=== PATIENT | female | born 1980 | race Caucasian/White ===

== ENCOUNTER 2022-09-12 09:36 | Outpatient (CLI) | payer OTHER, SELFPAY ==
--- NOTE | ~2022-09-12 | MM_ITS ---
EXAMINATION: MM screening jace BI w lucinda HISTORY: Screening mammogram TECHNIQUE: Craniocaudal and mediolateral oblique 3-D tomosynthesis images were obtained and synthetic 2-D images were generated. CAD analysis was submitted and interpreted. COMPARISON: No prior mammogram is available for comparison at this institution. BREAST PARENCHYMAL COMPOSITION: The breasts are heterogeneously dense, which may obscure small masses . FINDINGS: There is no evidence of suspicious mass, calcification, or architectural distortion to sugg est malignancy in either breast. There has been no suspicious interval change. IMPRESSION: 1. No mammographic evidence of malignancy. 2. Recommend routine screening mammography in one year. BI-RADS Category 1: Negative Reviewed, dictated and finalized at location A. RIOR COURT CLERK
== END 2022-09-12 09:37 | disposition home or self-care (01) ==
PROVIDERS: Visit Provider Internal Medicine
DX: Z12.31 Encounter for screening mammogram for malignant neoplasm of breast (principal)
CPT/HCPCS: 77063; 77067

== ENCOUNTER 2022-10-02 12:06 | Emergency (ER) | payer OTHER, SELFPAY ==
[2022-10-02] VITALS (32 sets, daily range): BP systolic 99–121; BP diastolic 41–75; PULSE 57–76; RESP 10–24; TEMP 36.6; O2SAT 98–100
--- NOTE | 2022-10-02 12:38 | ECG_ITS ---
Measurements Intervals [place] Rate: 64 P: 67 [place]: 143 QRS: 64 QRSD: 71 T: 71 QT: 400 QTc: 414 Interpretive Statements SINUS RHYTHM BASELINE ARTIFACT- I, III, AVR, AVL, AVF, V1 NORMAL ECG NO PREVIOUS ECG AVAILABLE FOR COMPARISON Electronically Signed On 10-02-2022 14:33:39 CDT by Manjeet Bustamante D.O.
[2022-10-02 13:09] LABS: Basophils Percent Auto 0.4 % (0.2-1.2); Eosinophils Absolute Auto 0.2 K/mm3 (0-0.3); Eosinophils Percent Auto 2.8 % (0-4.4); Hematocrit 39.6 % (37.0-47.0); Hemoglobin 13.5 g/dL (12.0-15.0); Immature Granulocyte Absolute 0.03 K/mm3 (0.00-0.031); Immature Granulocyte Percent A 0.5 % (0-0.5); Lymphocytes Absolute Auto 1.15 K/mm3 (0.9-3.2); Lymphocytes Percent Auto 20.4 % (18.3-44.2); Mean Corpuscular HGB Conc 34.1 g/dl (32-36); Mean Corpuscular Hemoglobin 33.8 pg (26-34); Mean Corpuscular Volume 99.2 fl (80-100); Mean Platelet Volume 9.6 fl (7.4-10.4); Monocytes Absolute Auto 0.3 K/mm3 (0.1-0.6); Monocytes Percent Auto 5.9 % (2.6-8.5); Platelet Count Result 301 k/mm3 (150-375); Red Blood Count 3.99 M/mm3 (4.2-5.4); Red Cell Distribution Width 12.4 % (11.5-14.5); White Blood Count 5.6 K/mm3 (4.5-10.0)
[2022-10-02] MEDS: ONDANSETRON INJ 4 MG/2 ML VIAL IV PUSH (13:15)
[2022-10-02] MEDS: MECLIZINE HCL 25 MG TABLET PO (13:15)
[2022-10-02] MEDS: SODIUM CHLORIDE 0.9% IV 1,000 ML 999 ML IV CONT (13:15)
[2022-10-02 13:19] LABS: Alanine Aminotransferase 16 U/L (6-35); Albumin Level 4.6 g/dL (3.5-5.1); Alkaline Phosphatase 130 U/L (38-126); Anion Gap 7 mmol/L (8-16); Aspartate Amino Transferase 25 U/L (14-36); Bilirubin,Total 0.9 mg/dL (0.2-1.3); Blood Urea Nitrogen 9 mg/dL (7-17); Calcium 9.4 mg/dL (8.4-10.2); Carbon Dioxide 27 mmol/L (22-30); Chloride 108 mmol/L (98-107); Estimated CRCL calculation 77 ml/min; Estimated Glomerular Filt Rate > 60; Glucose 95 mg/dL (65-110); Potassium 3.7 mmol/L (3.4-5.0); Sodium 142 mmol/L (137-145)
--- NOTE | 2022-10-02 16:17 | ED.GENADULT ---
HPI - General Adult General Chief complaint: Dizziness Stated complaint: covid with SOB and dizziness Time Seen by Provider: 10/02/22 12:26 History of Present Illness HPI narrative: Patient is a 42-year-old female who presents ER with dizziness. Began this morning. Extreme dizziness with nausea and anxiousness that occurs with movements. Better when sitting still. Patient diagnosed with COVID 2 weeks ago. She was also diagnosed with a sinus infection just couple days ago. She quit taking antibiotics due to side effect. Has throbbing frontal forehead. No ringing in the ears. No numbness or weakness in arm or legs. Related Data Allergies Allergy/AdvReac Type Severity Reaction Status Date / Time Sulfa (Sulfonamide Allergy Severe Sweating Verified 10/02/22 12:06 Antibiotics) Review of Systems Review of Systems: All systems reviewed & are unremarkable except as noted in HPI and below Constitutional: Constitutional: Denies chills, Reports fatigue and Denies fever(s) Eyes: Eyes: Denies change in vision ENT: Reports dizziness, Reports nasal congestion and Denies sore throat Cardiovascular: Cardiovascular: Denies chest pain, Denies rapid heart rate and Denies radiating jaw, neck or arm pain Respiratory: Respiratory: Denies cough and Denies dyspnea Gastrointestinal: Gastrointestinal: Denies abdominal pain, Reports nausea and Denies vomiting PMFSH Past Medical History Medical History (Updated 10/02/22 @ 21:51 by Bruno Nettles MD) cardiomyopathy Reports current ejection fraction is 50% (10/02/22) Surgical History Surgical History (Updated 10/02/22 @ 21:49 by Bruno Nettles MD) No pertinent past surgical history Exam Narrative: GENERAL: Well-appearing, well-nourished, and in no acute distress. HEAD: Normocephalic, atraumatic. EYES: PERRLA and EOMI. ENT: Mucous membranes moist. Tympanic membranes dull and opaque. With ear manipulation there is a loud pop on each side which caused increased dizziness. NECK: Supple. CHEST: Clear to auscultation. No respiratory distress. HEART: Regular rate and rhythm. Normal peripheral pulses. ABDOMEN: Soft, nontender, nondistended. EXTREMITIES: Normal range of motion. No edema. SKIN: Warm, dry, no rash. NEURO: Alert and oriented x3. PSYCH: Normal mood and affect. Course Course Emergency Course: Mild improvement in dizziness. Patient had some headache and was given Tylenol. Up and ambulatory with a steady gait and can turn without having profound dizziness. Recommend continued use of meclizine. Follow-up with PCP. Symptoms felt to be related to her URI and sinus issues. Vital Signs Vital signs: Vital Signs Temperature 97.9 F 10/02/22 12:14 Pulse Rate 76 10/02/22 12:14 Respiratory Rate 20 10/02/22 12:14 Blood Pressure 113/75 10/02/22 12:14 Pulse Oximetry 100 10/02/22 12:14 Oxygen Delivery Room Air 10/02/22 12:14 Temperature 97.9 F 10/02/22 12:14 Pulse Rate 66 10/02/22 17:17 Respiratory Rate 19 10/02/22 17:17 Blood Pressure 104/67 10/02/22 17:17 Pulse Oximetry 99 10/02/22 17:17 Oxygen Delivery Room Air 10/02/22 12:14 Medical Decision Making Vital Signs Vital Signs: Vital Signs Temperature 97.9 F 10/02/22 12:14 Pulse Rate 76 10/02/22 12:14 Respiratory Rate 20 10/02/22 12:14 Blood Pressure 113/75 10/02/22 12:14 Pulse Oximetry 100 10/02/22 12:14 Oxygen Delivery Room Air 10/02/22 12:14 Temperature 97.9 F 10/02/22 12:14 Pulse Rate 66 10/02/22 17:17 Respiratory Rate 19 10/02/22 17:17 Blood Pressure 104/67 10/02/22 17:17 Pulse Oximetry 99 10/02/22 17:17 Oxygen Delivery Room Air 10/02/22 12:14 Lab Data 10/02/22 12:58 10/02/22 12:58 Labs: Lab Results 10/02/22 10/02/22 10/02/22 Range/Units 12:58 12:58 16:37 WBC 5.6 (4.5-10.0) K/mm3 RBC 3.99 L (4.2-5.4) M/mm3 Hgb 13.5 (12.0-15.0) g/dL Hct 39.6
[2022-10-02] MEDS: KETOROLAC 30 MG/ML VIAL (*BKC) IV PUSH (16:41)
[2022-10-02 16:51] LABS: Appearance Urine Clear (Clear); Bilirubin Urine Negative (Negative); Blood Urine Negative (Negative); Color Urine Yellow (Yellow); Glucose Urine UA Negative (Negative); Ketones Urine Trace mg/dL (Negative); Leukocyte Esterase Ur Negative LEU/UL (Negative); Nitrate Urine Negative (Negative); Protein Urine Negative (Negative); Specific Grav Ur 1.012 (1.001-1.035); Urobilinogen Urine 0.2 mg/dL (<2.0); pH Urine 6.5 (5.0-9.0)
[2022-10-02 16:54] LABS: Add Urine Microscopic? NO
== END 2022-10-02 18:00 | disposition home or self-care (01) ==
PROVIDERS: Emergency Provider Emergency Medicine
DX: R42 Dizziness and giddiness (principal)
CPT/HCPCS: 36415; 80053; 81003; 81025; 85025; 93005; 96361; 96374; 96375; 99284; A9270; J1885; J2405; J7030

== ENCOUNTER 2023-10-24 11:37 | Emergency (ER) | payer OTHER, SELFPAY ==
--- NOTE | ~2023-10-24 | CT_ITS ---
EXAMINATION: CT cervical spine wo con DATE: 10/24/2023 13:10 INDICATION: Paresthesias. TECHNIQUE: Computed tomography (CT) of the cervical spine was performed without intravenous contrast. Automated exposure control and iterative reconstruction technique were employed. The dose-length pro duct was 104.93 mGy-cm. COMPARISON: None FINDINGS: There is mild scarring at the lung apices. There is 3 degrees levocurvature of cervical spi ne. There is mild kyphosis of cervical spine. There is moderately decreased disc height at C5-C6. The following disc levels are specifically discussed: C2-C3: There is mild bilateral uncovertebral joint osteoarthritis. There is moderate right and mild l eft facet joint osteoarthritis. There is no neural foraminal stenosis. There is no central canal sten osis. C3-C4: There is mild left uncovertebral joint osteoarthritis. There is mild bilateral facet joint ost eoarthritis. There is mild left neural foraminal stenosis. There is mild central canal stenosis. C4-C5: There is no uncovertebral joint osteoarthritis. There is mild right and moderate left facet harpreet int osteoarthritis. There is no neural foraminal stenosis. There is no central canal stenosis. C5-C6: There is mild bilateral uncovertebral joint osteoarthritis. There is no facet joint osteoarthr itis. There is mild left neural foraminal stenosis. There is mild central canal stenosis. C6-C7: There is no uncovertebral joint osteoarthritis. There is no facet joint osteoarthritis. There is no neural foraminal stenosis. There is no central canal stenosis. C7-T1: There is no uncovertebral joint osteoarthritis. There is mild bilateral facet joint osteoarthr itis. There is no neural foraminal stenosis. There is no central canal stenosis. IMPRESSION: 1. Moderate spondylosis at C5-C6 and mild spondylosis at other levels. Reviewed, dictated and finalized at location A.
--- NOTE | ~2023-10-24 | CT_ITS ---
EXAMINATION: CT brain wo con DATE: 10/24/2023 13:10 INDICATION: Bilateral hand numbness, visual defects and right ear tingling TECHNIQUE: Computed tomography (CT) of the head was performed without intravenous contrast. Sagittal and coronal reconstructions were performed. The mA was adjusted according to patient size. Iterative reconstruction technique was employed. The dose-length product was 605.33 mGy-cm. COMPARISON: None FINDINGS: No acute intracranial hemorrhage, acute infarction or abnormal extra axial fluid collection. Ventricl es are normal and symmetric. No mass/mass effect. Scattered mild mucosal thickening the paranasal sin uses with dependent bubbly mucus in the right sphenoid sinus. The orbits and mastoid air cells are no rmal. IMPRESSION: 1. Normal brain. No acute intracranial process. 2. Bubbly mucus in the right sphenoid sinus which can be seen with acute sinusitis. Reviewed, dictated and finalized at location B. IMPRESSION: 1. Normal brain. No acute intracranial process. 2. Bubbly mucus in the right sphenoid sinus which can be seen with acute sinusi tis.
[2023-10-24 11:40] VITALS: BP 132/70; PULSE 74; RESP 18; TEMP 36.4; O2SAT 100
--- NOTE | 2023-10-24 12:49 | ED.GENADULT ---
HPI - General Adult General Chief complaint: Unspecified Stated complaint: hands tingling and right ear pain Time Seen by Provider: 10/24/23 12:27 History of Present Illness HPI narrative: 43-year-old female with past medical history of cardiomyopathy presents for multiple symptoms. Patient states that she has felt tingling in bilateral upper extremities, general malaise, occasional headaches, pain behind her right ear. Of the symptoms been present for at least 1-2 weeks. There are no acute changes in the way she feels daily. Related Data Allergies Allergy/AdvReac Type Severity Reaction Status Date / Time Sulfa (Sulfonamide Allergy Severe Sweating Verified 10/02/22 12:06 Antibiotics) Review of Systems Review of Systems: CONSTITUTIONAL: Denies fever, chills, or sweats. EYES: Denies visual changes, redness, or discharge. ENT: Denies rhinorrhea, congestion, sore throat, or otalgia. CARDIOVASCULAR: Denies chest pain, palpitations, or edema. RESPIRATORY: Denies cough or dyspnea. GASTROINTESTINAL: Denies abdominal pain, nausea, vomiting, or diarrhea. GENITOURINARY: Denies dysuria or hematuria. SKIN: Denies rash or itching. MUSCULOSKELETAL: Denies back pain, joint pain, or myalgia. NEUROLOGIC: Denies headache, numbness, or weakness. PSYCHIATRIC: Denies anxiety or depression. PMFSH Past Medical History Medical History cardiomyopathy Reports current ejection fraction is 50% (10/02/22) Surgical History Surgical History No pertinent past surgical history Exam Narrative: GENERAL: Well-appearing, well-nourished, and in no acute distress. HEAD: Normocephalic, atraumatic. EYES: PERRLA and EOMI. ENT: Nares clear, no rhinorrhea or epistaxis. Mucous membranes moist. NECK: Supple. CHEST: Clear to auscultation. No respiratory distress. HEART: Regular rate and rhythm. No murmur heard. Normal peripheral pulses. ABDOMEN: Soft, nontender, nondistended, normal active bowel sounds. EXTREMITIES: Normal range of motion. No edema. SKIN: Warm, dry, no rash. NEURO: No focal deficits. Alert and oriented x3. visual acuity grossly normal PSYCH: Normal mood and affect. Course Vital Signs Vital signs: Vital Signs Temperature 97.6 F 10/24/23 11:40 Pulse Rate 74 10/24/23 11:40 Respiratory Rate 18 10/24/23 11:40 Blood Pressure 132/70 10/24/23 11:40 Pulse Oximetry 100 10/24/23 11:40 Oxygen Delivery Room Air 10/24/23 11:40 Temperature 97.6 F 10/24/23 11:40 Pulse Rate 74 10/24/23 11:40 Respiratory Rate 18 10/24/23 11:40 Blood Pressure 132/70 10/24/23 11:40 Pulse Oximetry 100 10/24/23 11:40 Oxygen Delivery Room Air 10/24/23 11:40 Medical Decision Making MDM Narrative Medical decision making narrative: There are no focal deficits on exam. Subarachnoid hemorrhage is felt to be unlikely at this time. There is no history of fever and neck is supple to evaluation without meningismus. Meningitis is felt to be unlikely. No traumatic history or signs of trauma on evaluation. Risk factors for cerebral venous thrombosis reviewed, no visual acuity change benign funduscopy. Cerebral venous thrombosis is felt unlikely at this time. No ocular signs of acute glaucoma today. Patient's headache is felt to be benign cephalgia and reasonable for outpatient management IMPRESSION: 1. Moderate spondylosis at C5-C6 and mild spondylosis at other levels. IMPRESSION: 1. Normal brain. No acute intracranial process. 2. Bubbly mucus in the right sphenoid sinus which can be seen with acute sinusitis. EKG with sinus bradycardia 58 ppm, IL interval 142, QRS duration of 68, QTC 395, normal axis and no ischemia Workup is essentially unremarkable. I have not identified an etiology for patient's chronic symptoms. I do not suspect acute life threat. Patient has an established
--- NOTE | 2023-10-24 12:53 | ECG_ITS ---
SEE SCANNED COPY FOR CONFIRMED REPORT MTDD
--- NOTE | 2023-10-24 13:05 | PC.NURSE ---
unable to obtain EKG patient in CT
[2023-10-24] MEDS: LACTATED RINGERS 1,000 ML 500 ML IV CONT (13:26)
[2023-10-24 13:36] LABS: Basophils Absolute Auto 0.1 K/mm3 (0.0-0.1); Basophils Percent Auto 1.2 % (0.2-1.2); Eosinophils Absolute Auto 0.1 K/mm3 (0-0.3); Hematocrit 41.5 % (37.0-47.0); Hemoglobin 13.7 g/dL (12.0-15.0); Immature Granulocyte Absolute 0.01 K/mm3 (0.00-0.031); Immature Granulocyte Percent A 0.2 % (0-0.5); Lymphocytes Absolute Auto 1.31 K/mm3 (0.9-3.2); Lymphocytes Percent Auto 22.3 % (18.3-44.2); Mean Corpuscular Hemoglobin 33.1 pg (26-34); Mean Corpuscular Volume 100.2 fl (80-100); Mean Platelet Volume 9.6 fl (7.4-10.4); Monocytes Absolute Auto 0.3 K/mm3 (0.1-0.6); Monocytes Percent Auto 5.5 % (2.6-8.5); Neutrophils Absolute Auto 4.1 K/mm3 (1.3-6.7); Neutrophils Percent Auto 69.8 % (45.5-73.1); Platelet Count Result 204 k/mm3 (150-375); Red Blood Count 4.14 M/mm3 (4.2-5.4); Red Cell Distribution Width 12.5 % (11.5-14.5); White Blood Count 5.9 K/mm3 (4.5-10.0)
[2023-10-24 13:58] LABS: Alanine Aminotransferase 10 U/L (6-35); Albumin Level 4.9 g/dL (3.5-5.1); Alkaline Phosphatase 42 U/L (38-126); Anion Gap 8 mmol/L (4-12); Aspartate Amino Transferase 28 U/L (14-36); Bilirubin,Total 0.9 mg/dL (0.2-1.3); Blood Urea Nitrogen 10 mg/dL (7-17); Calcium 9.6 mg/dL (8.4-10.2); Carbon Dioxide 27 mmol/L (22-30); Chloride 105 mmol/L (98-107); Estimated CRCL calculation 77 ml/min; Estimated Glomerular Filt Rate > 60; Glucose 102 mg/dL (65-110); Potassium 4.2 mmol/L (3.4-5.0); Sodium 140 mmol/L (137-145)
[2023-10-24 14:01] LABS: Erythrocyte Sedimentation Rate 17 mm/hr (0-20)
[2023-10-24 14:52] LABS: Free T4 Free Thyroxine 1.28 ng/mL (0.78-2.19)
== END 2023-10-24 15:09 | disposition home or self-care (01) ==
PROVIDERS: Emergency Provider Emergency Medicine; PCP Internal Medicine
DX: R53.82 Chronic fatigue, unspecified (principal)
CPT/HCPCS: 36415; 70450; 72125; 80053; 83735; 84439; 85025; 85652; 93005; 96360; 96361; 99284; J7120

== ENCOUNTER 2024-02-13 20:25 | Emergency (ER) | payer OTHER, SELFPAY ==
--- NOTE | ~2024-02-13 | XR_ITS ---
EXAMINATION: XR chest 2V DATE: 02/13/2024 21:13 INDICATION: Syncopal episode TECHNIQUE: frontal and lateral views of the chest were obtained. COMPARISON: Chest radiograph dated 07/04/2016 FINDINGS: Mild biapical pleural-parenchymal scarring. No other airspace opacities, pulmonary edema, pleural eff usion or pneumothorax. The cardiomediastinal silhouette is normal. Visualized bones and soft tissues are unremarkable. IMPRESSION: 1. No acute cardiopulmonary disease. Reviewed, dictated and finalized at location A.
[2024-02-13 20:29] VITALS: BP 111/60; PULSE 94; RESP 20; TEMP 36.3; O2SAT 100
--- NOTE | 2024-02-13 20:29 | ECG_ITS ---
Test Date: 2024-02-13 20:52:19 Measurements Intervals [place] Rate: 90 P: 72 [place]: 146 QRS: 50 QRSD: 61 T: 55 QT: 350 QTc: 430 Interpretive Statements SINUS RHYTHM LOW QRS VOLTAGE MINOR ST SEGMENT ABNORMALITY ABNORMAL ECG No previous ECG available for comparison Electronically Signed On 02-14-2024 08:17:53 CDT by Faheem Oconnor M.D.
[2024-02-13 21:09] LABS: Basophils Absolute Auto 0.1 K/mm3 (0.0-0.1); Basophils Percent Auto 0.9 % (0.2-1.2); Eosinophils Absolute Auto 0.2 K/mm3 (0-0.3); Eosinophils Percent Auto 2.9 % (0-4.4); Hematocrit 40.2 % (37.0-47.0); Hemoglobin 13.4 g/dL (12.0-15.0); Immature Granulocyte Absolute 0.02 K/mm3 (0.00-0.031); Immature Granulocyte Percent A 0.4 % (0-0.5); Lymphocytes Absolute Auto 0.96 K/mm3 (0.9-3.2); Lymphocytes Percent Auto 17.6 % (18.3-44.2); Mean Corpuscular HGB Conc 33.3 g/dl (32-36); Mean Corpuscular Hemoglobin 33.1 pg (26-34); Mean Corpuscular Volume 99.3 fl (80-100); Mean Platelet Volume 9.4 fl (7.4-10.4); Monocytes Absolute Auto 0.4 K/mm3 (0.1-0.6); Monocytes Percent Auto 7.7 % (2.6-8.5); Neutrophils Absolute Auto 3.8 K/mm3 (1.3-6.7); Neutrophils Percent Auto 70.5 % (45.5-73.1); Platelet Count Result 201 k/mm3 (150-375); Red Blood Count 4.05 M/mm3 (4.2-5.4); Red Cell Distribution Width 12.5 % (11.5-14.5); White Blood Count 5.5 K/mm3 (4.5-10.0)
[2024-02-13 21:18] LABS: Alanine Aminotransferase 10 U/L (6-35); Albumin Level 4.7 g/dL (3.5-5.1); Alkaline Phosphatase 54 U/L (38-126); Anion Gap 11 mmol/L (4-12); Aspartate Amino Transferase 22 U/L (14-36); Bilirubin,Total 0.5 mg/dL (0.2-1.3); Blood Urea Nitrogen 15 mg/dL (7-17); Calcium 9.2 mg/dL (8.4-10.2); Carbon Dioxide 25 mmol/L (22-30); Chloride 101 mmol/L (98-107); Estimated CRCL calculation 47 ml/min; Estimated Glomerular Filt Rate 60; Glucose 106 mg/dL (65-110); Potassium 3.8 mmol/L (3.4-5.0); Sodium 137 mmol/L (137-145)
--- NOTE | 2024-02-14 00:48 | PC.NURSE ---
no answer at triage for vital signs
== END 2024-02-14 02:15 | disposition left against medical advice (07) ==
PROVIDERS: Emergency Provider Emergency Medicine; PCP Internal Medicine
DX: R55 Syncope and collapse (principal)
CPT/HCPCS: 36415; 71046; 80053; 85025; 93005; 99199

== ENCOUNTER 2024-02-14 12:16 | Emergency (ER) | payer OTHER, SELFPAY ==
[2024-02-14] VITALS (16 sets, daily range): BP systolic 100–125; BP diastolic 45–66; PULSE 62–87; RESP 10–20; TEMP 36.8–36.9; O2SAT 98–100
--- NOTE | ~2024-02-14 | XR_ITS ---
XR chest 1V portable DATE: 02/14/2024 14:38 INDICATION: Syncopal episode today TECHNIQUE: Portable upright AP chest at 1433 hours COMPARISON: 02/13/2024 AP and lateral chest FINDINGS: Bilateral hyperinflation consistent with COPD. No pulmonary infiltrate or consolidation, pl eural effusion or pulmonary vascular congestion or pneumothorax. Normal heart size. No hilar or mediastinal enlargement. Osteopenia. IMPRESSION: Bilateral hyperinflation consistent with COPD; no active cardiopulmonary disease is noted otherwise Reviewed, dictated and finalized at location J. IMPRESSION: Bilateral hyperinflation consistent with COPD; no active cardiopulm onary disease is noted otherwise
--- NOTE | 2024-02-14 12:18 | ECG_ITS ---
Test Date: 2024-02-14 12:29:46 Measurements Intervals [place] Rate: 82 P: 75 [place]: 138 QRS: 30 QRSD: 72 T: 52 QT: 368 QTc: 431 Interpretive Statements SINUS RHYTHM LOW-VOLTAGE QRS ABNORMAL ECG Compared to ECG 02/13/2024 20:52:19 NO SIGNIFICANT DIFFERENCE Electronically Signed On 02-15-2024 08:50:49 CDT by Faheem Oconnor M.D.
[2024-02-14 12:43] LABS: Eosinophils Absolute Auto 0.2 K/mm3 (0-0.3); Eosinophils Percent Auto 4.5 % (0-4.4); Hematocrit 41.4 % (37.0-47.0); Hemoglobin 14.1 g/dL (12.0-15.0); Immature Granulocyte Absolute 0.01 K/mm3 (0.00-0.031); Immature Granulocyte Percent A 0.2 % (0-0.5); Lymphocytes Absolute Auto 0.89 K/mm3 (0.9-3.2); Lymphocytes Percent Auto 21.3 % (18.3-44.2); Mean Corpuscular HGB Conc 34.1 g/dl (32-36); Mean Corpuscular Hemoglobin 33.4 pg (26-34); Mean Corpuscular Volume 98.1 fl (80-100); Mean Platelet Volume 9.5 fl (7.4-10.4); Monocytes Absolute Auto 0.3 K/mm3 (0.1-0.6); Monocytes Percent Auto 7.9 % (2.6-8.5); Neutrophils Absolute Auto 2.7 K/mm3 (1.3-6.7); Neutrophils Percent Auto 65.1 % (45.5-73.1); Platelet Count Result 192 k/mm3 (150-375); Red Blood Count 4.22 M/mm3 (4.2-5.4); Red Cell Distribution Width 12.6 % (11.5-14.5); White Blood Count 4.2 K/mm3 (4.5-10.0)
[2024-02-14 12:56] LABS: Alanine Aminotransferase 10 U/L (6-35); Albumin Level 4.8 g/dL (3.5-5.1); Alkaline Phosphatase 53 U/L (38-126); Anion Gap 9 mmol/L (4-12); Aspartate Amino Transferase 24 U/L (14-36); Bilirubin,Total 1.2 mg/dL (0.2-1.3); Blood Urea Nitrogen 12 mg/dL (7-17); Calcium 9.4 mg/dL (8.4-10.2); Carbon Dioxide 24 mmol/L (22-30); Chloride 105 mmol/L (98-107); Estimated CRCL calculation 68 ml/min; Estimated Glomerular Filt Rate > 60; Glucose 100 mg/dL (65-110); Potassium 3.8 mmol/L (3.4-5.0); Sodium 138 mmol/L (137-145)
[2024-02-14 13:07] LABS: Troponin I < 0.012 ng/mL (0.000-0.034)
[2024-02-14 13:36] LABS: Influenza A QL RT-PCR Negative (Negative); Influenza B QL RT-PCR Negative (Negative); RSV RNA, RT-PCR Negative (Negative); SARS-CoV-2 RNA PCR Negative (Negative)
[2024-02-14 13:55] LABS: BEDSIDEPREGUCG Negative
[2024-02-14 13:56] LABS: Add Urine Microscopic? NO; Appearance Urine Clear (Clear); Bilirubin Urine Negative (Negative); Blood Urine Negative (Negative); Color Urine Yellow (Yellow); Glucose Urine UA Negative (Negative); Ketones Urine 1+ mg/dL (Negative); Leukocyte Esterase Ur Negative LEU/UL (Negative); Nitrate Urine Negative (Negative); Protein Urine Negative (Negative); Specific Grav Ur 1.015 (1.001-1.035); pH Urine 7.5 (5.0-9.0)
--- NOTE | 2024-02-14 14:35 | ED.GENADULT ---
HPI - General Adult General Chief complaint: Syncope Stated complaint: passed out last night Time Seen by Provider: 02/14/24 13:57 History of Present Illness HPI narrative: Citlali Burroughs is a 44 y/o female who presents with reports of having a syncope episode last night while at a restaurant. She states she was leaning against a chair when she felt it come one, she felt weak/ lost her hearing and her caught her - she came to after about 20-30 seconds. EMS came and said her vitals were stable she declined EMS transport but came here to get checked out. She states that she came here but the wait was so long she ended up leaving before being seen. She states that she woke up today still not feeling completely better, with headache some visual floaters and some uneasy feeling in her chest that she says doesn't feel like pain but doesn't feel normal and says could be anxiety. PMHx of cardiomyopathy but has since resolved. Related Data Allergies Allergy/AdvReac Type Severity Reaction Status Date / Time Sulfa (Sulfonamide Allergy Severe Sweating Verified 10/02/22 12:06 Antibiotics) Review of Systems Review of Systems: CONSTITUTIONAL: Denies fever, chills, or sweats. EYES:Reports vision floaters that started today with her [place] ENT: Denies rhinorrhea, congestion, sore throat, or otalgia. CARDIOVASCULAR: Reports different feeling in chest but not really pain. No palpitations, or edema. RESPIRATORY: Denies cough or dyspnea. GASTROINTESTINAL: Denies abdominal pain, nausea, vomiting, or diarrhea. GENITOURINARY: Denies dysuria or hematuria. SKIN: Denies rash or itching. MUSCULOSKELETAL: Denies back pain, joint pain, or myalgia. NEUROLOGIC: Reports Headache, denies numbness, dizziness, or weakness. PSYCHIATRIC: Denies anxiety or depression. PMFSH Past Medical History Medical History cardiomyopathy Reports current ejection fraction is 50% (10/02/22) Surgical History Surgical History No pertinent past surgical history Exam Narrative: GENERAL: Well-appearing, well-nourished, and in no acute distress. HEAD: Normocephalic, atraumatic. EYES: PERRLA and EOMI. ENT: Nares clear, no rhinorrhea or epistaxis. Mucous membranes moist. NECK: Supple. No adenopathy or masses. No carotid bruits or JVD CHEST: Clear to auscultation. No respiratory distress. No wheezes rales or rhonchi HEART: Regular rate and rhythm. No murmur heard. Normal peripheral pulses. ABDOMEN: Soft, nontender, nondistended, normal active bowel sounds. EXTREMITIES: Normal range of motion. No edema. SKIN: Warm, dry, no rash. NEURO: No focal deficits. Alert and oriented x3. PSYCH: Normal mood and affect. Course Vital Signs Vital signs: Vital Signs Temperature 36.9 C 02/14/24 12:20 Pulse Rate 87 02/14/24 12:20 Respiratory Rate 16 02/14/24 12:20 Blood Pressure 105/48 L 02/14/24 12:20 Pulse Oximetry 100 02/14/24 12:20 Temperature 36.9 C 02/14/24 12:20 Pulse Rate 66 02/14/24 14:46 Respiratory Rate 13 02/14/24 14:46 Blood Pressure 113/45 L 02/14/24 14:46 Pulse Oximetry 99 02/14/24 14:46 Medical Decision Making MDM Narrative Medical decision making narrative: 44 y/o presents with reports of having a syncope yesterday evening. She explains that she did not want to wait in the ER last night and went home, but she woke up still not feeling great with a headache Plan to check thorough syncope work up and will give migraine cocktail CBC- wbc 4.2 CMP- unremarkable Trop 1- Negative Trop 2 - Negative BnP - negative 71 Ddimer- 0.32 Influenza/Covid/ RSV- Negative Chest xr- no active cardiopulmonary disease is noted Re-evaluted pt at 1700 - she states she is feeling a lot better, headache is gone and she feels ready to go home Updated pt on results and encouraged her to follow u
[2024-02-14 14:51] LABS: D Dimer 0.32 ug/mL (<0.48)
[2024-02-14] MEDS: SODIUM CHLORIDE 0.9% IV 1,000 ML 999 ML IV CONT (14:51)
[2024-02-14] MEDS: diphenhydrAMINE HCl INJ 50 MG/ML VIAL 25 MG IV PUSH (14:51)
[2024-02-14] MEDS: PROCHLORPERAZINE EDISYLATE 10 MG/2 ML VIAL IV PUSH (14:51)
[2024-02-14] MEDS: KETOROLAC 30 MG/ML VIAL (*BKC) IV PUSH (14:51)
[2024-02-14 14:54] LABS: NT Pro B Type Natriuretic Pept 71 pg/mL (19.9-100)
--- NOTE | 2024-02-14 16:22 | ECG_ITS ---
Test Date: 2024-02-14 16:26:19 Measurements Intervals [place] Rate: 61 P: 61 [place]: 162 QRS: 52 QRSD: 70 T: 50 QT: 431 QTc: 436 Interpretive Statements SINUS RHYTHM LOW QRS VOLTAGE ABNORMAL ECG Compared to ECG 02/14/2024 12:29:46 No significant changes Electronically Signed On 02-15-2024 08:56:09 CDT by Faheem Oconnor M.D.
[2024-02-14 16:45] LABS: Troponin I < 0.012 ng/mL (0.000-0.034)
== END 2024-02-14 17:25 | disposition home or self-care (01) ==
PROVIDERS: Emergency Medicine; Emergency Provider Nurse Practitioner Family; PCP Internal Medicine
DX: R55 Syncope and collapse (principal); R51.9 Headache, unspecified; Z20.822 Contact with and (suspected) exposure to COVID-19; R94.31 Abnormal electrocardiogram [ECG] [EKG]
CPT/HCPCS: 36415; 71045; 80053; 81003; 81025; 83880; 84484; 85025; 85380; 87637; 93005; 96361; 96374; 96375; 99284; J0780; J1200; J1885; J7030

== ENCOUNTER 2024-02-17 15:27 | Outpatient (CLI) | payer OTHER, SELFPAY ==
--- NOTE | ~2024-02-17 | CT_ITS ---
CT brain wo/w con Ordering provider: Harjit Mcneill, History: 44 years Female with . DIZZINESS AND GIDDINESS . Comparison: None. Technique: CT of the head with and without contrast. Radiation reduction technique utilized. The dose-length product was 605.33 mGy-cm. 100 mL Omnipaque 350 was given IV. FINDINGS: BRAIN PARENCHYMA AND CSF SPACES: No midline shift, mass effect or hemorrhage. The brain parenchyma a nd CSF spaces are otherwise normal. VISUALIZED PARANASAL SINUSES: Bilateral maxillary, ethmoid and sphenoid sinus disease. MASTOIDS: Well aerated. BONES: The bones appear intact. SOFT TISSUES: Visualized nasopharynx is normal. Superficial soft tissues are normal. IMPRESSION: No acute intracranial findings. No enhancing lesions. Reviewed, dictated and finalized at location A.
== END 2024-02-17 15:28 ==
LOC: MICIMG 15:28
PROVIDERS: PCP Internal Medicine; Visit Provider Internal Medicine
DX: R42 Dizziness and giddiness (principal)
CPT/HCPCS: 70470; Q9967